=== PATIENT | male | born 1940 | race Caucasian/White ===

== ENCOUNTER → 2016-10-16 | Outpatient (CLI) | payer OTHER | LOC: BHLMT 10:30 | PROVIDERS: ATTEND Internal Medicine Cardiovascular Disease | DX: I48.91 Unspecified atrial fibrillation (principal); R55 Syncope and collapse | CPT/HCPCS: 93225-PO; 93226-PO ==

== ENCOUNTER → 2016-12-20 | Outpatient (CLI) | payer OTHER | LOC: BHLMT 11:00 | PROVIDERS: ATTEND Internal Medicine Cardiovascular Disease | DX: I48.91 Unspecified atrial fibrillation (principal) ==

== ENCOUNTER → 2017-09-24 | Outpatient (CLI) | payer OTHER | LOC: BHLMT 13:00 | PROVIDERS: ATTEND Internal Medicine Cardiovascular Disease | DX: I71.2 Thoracic aortic aneurysm, without rupture (principal); I48.2 Chronic atrial fibrillation; I49.5 Sick sinus syndrome; I50.32 Chronic diastolic (congestive) heart failure | CPT/HCPCS: 93005-PO ==

== ENCOUNTER → 2018-06-09 | Outpatient (CLI) | payer OTHER | LOC: BHLMT 14:45 | PROVIDERS: ATTEND Nurse Practitioner Family | DX: I48.2 Chronic atrial fibrillation (principal); R06.02 Shortness of breath; I49.5 Sick sinus syndrome; I50.32 Chronic diastolic (congestive) heart failure | CPT/HCPCS: 93005-PO ==

== ENCOUNTER → 2018-06-24 | Outpatient (CLI) | payer OTHER | LOC: BHLMT 11:30 | PROVIDERS: ATTEND Internal Medicine Interventional Cardiology | DX: I48.91 Unspecified atrial fibrillation (principal); R06.02 Shortness of breath | CPT/HCPCS: 93306-PO ==

== ENCOUNTER → 2018-09-01 | Outpatient (CLI) | payer OTHER | DX: I48.91 Unspecified atrial fibrillation (principal); R06.02 Shortness of breath ==

== ENCOUNTER → 2018-09-23 | Outpatient (CLI) | payer OTHER | LOC: BHFA 13:30 | PROVIDERS: ATTEND Internal Medicine Cardiovascular Disease | DX: R06.02 Shortness of breath (principal); I49.5 Sick sinus syndrome | CPT/HCPCS: 78452; 93017; A9500; J2785 ==

== ENCOUNTER 2018-09-24 09:10 | Inpatient (IN) | payer OTHER ==
[2018-09-24] MEDS ORDERED: diphenhydrAMINE 25 MG CAP PO ONE (09:14)
[2018-09-24] MEDS ORDERED: NS 1,000 ML IV ONE (09:14)
[2018-09-24] MEDS ORDERED: BACITRACIN IRRIGATION/NS 50,000 UNITS/1,000 ML BTL IRR ONE (09:14)
[2018-09-24] MEDS ORDERED: DIAZEPAM 5 MG TAB PO ONE (09:14)
[2018-09-24] MEDS ORDERED: ceFAZolin 2 GM/DEXTROSE 100 ML IV ONE (09:14)
[2018-09-24] MEDS ORDERED: LIDOCAINE 1% 300 MG/30 ML SDV ONE (10:19)
[2018-09-24] MEDS ORDERED: MIDAZOLAM 2 MG/2 ML VIAL ONE ×2 (10:19)
[2018-09-24] MEDS ORDERED: IOPAMIDOL (ISOVUE-300) 50 ML VIAL ONE (10:19)
[2018-09-24] MEDS ORDERED: fentaNYL 100 MCG/2 ML INJ ONE ×3 (10:19→12:18)
[2018-09-24] MEDS ORDERED: BUPIVACAINE 0.5% 30 ML SDV ONE (10:20)
[2018-09-24] MEDS ORDERED: LIDO/EPI 1% **for epidural** 30 ML SDV ONE (10:20)
[2018-09-24 10:27] LABS: PLATELET COUNT 509 10^3/uL (150-400)
[2018-09-24 10:39] LABS: INR 1.12 (0.83-1.16)
--- NOTE | 2018-09-24 11:22 | PDPROPOC ---
Sedation Plan of Care Sedation Plan of Care: vital signs stable, mental status noted, patient educated of risks, benefits, alternatives, patient can tolerate sedation ASA Classification: ASA 2 Planned drugs: fentanyl, midazolam Mallampati Score: Class 1 Mallampati Reference Image: Patient passed 3-3-2 rule?: Yes
--- NOTE | 2018-09-24 11:22 | PDHPUP ---
History & Physical Update H&P update statement: This history and physical update is based on an assessment of the patient which was completed after admission or registration (within 24 hours), but prior to the surgery/procedure. H&P update: H&P reviewed & patient examined, no change in patient's condition since H&P completed
--- NOTE | 2018-09-24 13:01 | CPIP ---
[f rep st] INVASIVE CARDIAC PROCEDURE DATE OF PROCEDURE: 09/24/2018 PROCEDURE: Right heart catheterization. INDICATIONS: Mr. Ahumada is 77 years old. He has symptoms of [place] [employer] Functional C lass 3 dyspnea on exertion. This procedure was performed as a diagnostic procedure as an add-on prio r to placement of a permanent pacemaker. TECHNIQUE: Please see the previously dictated pacemaker summary. Following placement of a 5-Algerian pinnacle sheath, a balloon tipped catheter was advanced to the pulmonary artery occlusive pressure po sition. Pressure was measured with the pulmonary artery occluded, the pulmonary artery pressure, the right ventricular pressure, and the right atrial pressure. The catheter was then removed from the b miranda. Following the procedure, the patient underwent implantation of a permanent pacemaker. FINDINGS: The pulmonary capillary wedge pressure was 21 mmHg with A waves of 23 and V waves of 24 mm Hg; pulmonary artery pressure of 50/18/31 mmHg with a pulmonary artery saturation of 82.5% on supplem ental oxygen; right ventricular pressure 47/5/14 mmHg. Right atrial pressure 14 mmHg. IMPRESSION(S): 1. Successful right heart catheterization. 2. Findings consistent with diastolic dysfunction and mild congestive heart failure. /[id number]/MODL
--- NOTE | 2018-09-24 13:06 | CPIP ---
[f rep st] INVASIVE CARDIAC PROCEDURE DATE OF PROCEDURE: 09/24/2018 INDICATIONS: The patient is 77 years old. He has a history of sick sinus syndrome with symptomatic bradycardia episodes of dizziness and pauses noted on telemetry up to 3.2 seconds. He has chronic at rial fibrillation. PROCEDURE: Implantation of a single-chamber pacemaker. TECHNIQUE: Following informed consent, the patient brought to the cardiac catheterization laboratory in a fasting state. Left chest was prepped and draped in the usual sterile fashion. A venogram was performed identifying a widely patent axillary subclavian system. 2% lidocaine was infiltrated in t he skin below the left clavicle. Using a #10 blade, a 3 cm incision was made. Using blunt and sharp dissection, the incision was carried down to the prepectoral fascia. A pacemaker pocket was then fa shioned. An antibiotic soaked sponge was placed in the pocket. Using a single stick in the modified Seldinger technique, access was gained to the axillary vein at the level of the 1st rib. Initially, a 5-Chilean pinnacle sheath was placed. A right heart catheterization was performed. There is a ful l and separately detailed report. After this, this sheath was changed out for 6-Chilean SafeSheath. Under fluoroscopic guidance, the right ventricular lead was advanced to the right ventricular apex. The lead was screwed into place and the sheath torn away. The lead was tested with excellent capture and sensing. The lead was then secured to the pacemaker pocket floor using 0 Ethibond. The pocket was then inspected. All bleeders were cauterized. The pocket was irrigated with antibiotic-containi ng solution. The device was brought to the field and affixed to the header according to patient relations coordinator guidelines. The device was then placed in the pocket. The pocket was then closed with 3 layers, in itially using 2 layers of interrupted suture using 2-0 and 3-0 Vicryl, and finally running Stratafix for the skin. Steri-Strips and a dry dressing were applied. DEVICE INFORMATION: The pacemaker is a [employer] Assurity MRI compatible device, model #PM127 2, serial #[id number]. The right ventricular lead is a [employer] 2088TC 58 cm lead, serial #[id number]. In the ventricle, capture was 0.6 V at 0.5 msec with a lead impedance of 806 ohms and sensed R waves of 14.5 mV. COMPLICATIONS: None. DISPOSITION: Patient will be admitted to the hospital and monitored overnight. I anticipate he will be discharged home in the morning. /[id number]/MODL
[2018-09-24] MEDS: GABAPENTIN 100 MG CAP PO SCH (21:42)
[2018-09-24] MEDS: prednisoLONE ACET 1% 5 ML OPHT.BTL LEFTEYE SCH (21:42)
[2018-09-25 04:59] LABS: PLATELET COUNT 425 10^3/uL (150-400)
[2018-09-25] MEDS: LEVOTHYROXINE 50 MCG TAB PO SCH (05:27)
[2018-09-25] MEDS ORDERED: FUROSEMIDE 40 MG TAB PO SCH (09:00)
--- NOTE | 2018-09-25 09:10 | ASMTCMCOM ---
CM Note CM Note Notes: Patient chart reviewed for discharge planning purposes. Patient admitted for elective heart cath and is s/p PPM. No cureent needs identiifed. CM available shoulld needs arise. Plan: Dc to home. Date Signed: 09/25/2018 09:09 AM Electronically Signed By:Mallika Maguire RN
--- NOTE | 2018-09-25 12:46 | ASMTCMCOM ---
CM Note CM Note Notes: Per patient's son Sean patient self care will be compromised by recent PPM placement. The want him to go to [facility] in [place]. [facility] CM to follow for needs. Plan: To SNF Date Signed: 09/25/2018 12:45 PM Electronically Signed By:Mallika Maguire RN
--- NOTE | 2018-09-25 17:47 | PDHOSCONS ---
History and Physical - Chief Complaint Heart Problems - History of Present Illness Zbigniew Ahumada is a 77 yo M with a PMHx of SSS, symptomatic bradycardia, chronic A Fib, diastolic CHF, CVA, hypothyroidism who presents to [facility] for PPM placement. Patient reports significant shortness of breath with any ambulation. He denies any chest pain. He reports a history of falling which stems from a stroke that occurred. He reports multiple falls after this. Most recent fall is reported to be 1 month ago, where he reports he tripped over his oxygen tubing in the middle of the night on the way to the bathroom. He denies any LH, dizziness, chest pain at that time. History Information - Allergies/Home Medication List Allergies/Adverse Reactions: No Known Allergies Allergy (Unverified 09/22/18 14:55) Home Medications: Apixaban [Eliquis] 5 mg PO BID 09/22/18 [Last Taken 09/19/18 21:00] Escitalopram Oxalate [Lexapro] 20 mg PO HS 09/22/18 [Last Taken 09/22/18 21:00] Gabapentin [Neurontin 100 MG (*)] 100 mg PO HS 09/22/18 [Last Taken 09/23/18 21: 00] Herbals/Supplements -Info Only 1 ea PO DAILY 09/22/18 [Last Taken Unknown] Levothyroxine [Synthroid 50 mcg (*)] 50 mcg PO DAILY06 09/22/18 [Last Taken 06:00] Multivitamins [Multivitamin (*)] 1 each PO DAILY 09/22/18 [Last Taken Unknown] Prednisolone Acetate/Pf [Prednisolone Acet 1% Eye Drop] 1 drop LEFTEYE [Last Taken 09/22/18 21:00] I have personally reviewed and updated: family history, medical history, social history, surgical history - Past Medical History atrial fibrillation - Surgical History Reports: pacemaker/AICD - Family History Positive for: non-pertinent - Social History Smoking Status: Never smoked Review of Systems Review of Systems: ROS: 10pt was reviewed & negative except for what was stated in HPI & below Physical Exam Physical Exam: Temp Pulse Resp BP Pulse Ox 36.4 C 88 24 H 94/65 L 99 09/25/18 15:57 09/25/18 15:57 09/25/18 15:57 09/25/18 15:57 09/25/18 15:57 O2 (L/minute) 4 Constitutional: no apparent distress Eyes: PERRL Ears, Nose, Mouth, Throat: moist mucous membranes Cardiovascular: regular rate and rhythym, No edema Respiratory: no respiratory distress Gastrointestinal: normoactive bowel sounds Skin: warm Musculoskeletal: full muscle strength Neurologic: AAOx3 Psychiatric: interacting appropriately Lab Data & Imaging Review 09/25/18 03:34 09/25/18 03:34 WBC 12.18 10^3/uL (3.80-9.50) H 09/25/18 03:34 RBC 4.62 10^6/uL (4.40-6.38) 09/25/18 03:34 Hgb 14.0 g/dL (13.7-17.5) 09/25/18 03:34 Hct 44.4 % (40.0-51.0) 09/25/18 03:34 MCV 96.1 fL (81.5-99.8) 09/25/18 03:34 MCH 30.3 pg (27.9-34.1) 09/25/18 03:34 MCHC 31.5 g/dL (32.4-36.7) L 09/25/18 03:34 RDW 13.3 % (11.5-15.2) 09/25/18 03:34 Plt Count 425 10^3/uL (150-400) H 09/25/18 03:34 MPV 9.2 fL (8.7-11.7) 09/25/18 03:34 Neut % (Auto) 70.4 % (39.3-74.2) 09/25/18 03:34 Lymph % (Auto) 15.0 % (15.0-45.0) 09/25/18 03:34 [place] % (Auto) 12.3 % (4.5-13.0) 09/25/18 03:34 Eos % (Auto) 1.3 % (0.6-7.6) 09/25/18 03:34 Baso % (Auto) 0.4 % (0.3-1.7) 09/25/18 03:34 Nucleat RBC Rel Count 0.0 % (0.0-0.2) 09/25/18 03:34 Absolute Neuts (auto) 8.57 10^3/uL (1.70-6.50) H 09/25/18 03:34 Absolute Lymphs (auto) 1.83 10^3/uL (1.00-3.00) 09/25/18 03:34 Absolute Monos (auto) 1.50 10^3/uL (0.30-0.80) H 09/25/18 03:34 Absolute Eos (auto) 0.16 10^3/uL (0.03-0.40) 09/25/18 03:34 Absolute Basos (auto) 0.05 10^3/uL (0.02-0.10) 09/25/18 03:34 Absolute Nucleated RBC 0.00 10^3/uL (0-0.01) 09/25/18 03:34 Immature Gran % 0.6 % (0.0-1.1) 09/25/18 03:34 Immature Gran # 0.07 10^3/uL (0.00-0.10) 09/25/18 03:34 PT 14.0 SEC (12.0-15.0) 09/24/18 10:00 INR 1.12 (0.83-1.16) 09/24/18 10:00 Sodium 140 mEq/L (135-145) 09/25/18 03:34 Potassium 4.1 mEq/L (3.5-5.2) 09/25/18 03:34 Chloride 101 mEq/L (97-110) 09/25/18 03:34 Carbon Dioxide 32 mEq/l (22-31) H 09/25/18 03:34 Anion Gap 7 mEq/L (6-14) 09/25/18 03:34 BUN 11 mg/dL (7-23) 09/25/18 03:34 Creatinine 0.8 mg/dL (0.7-1.3) 09/25/18 03:34 Estimated GFR > 60 09/25/18 03:34 Glucose 92 mg/dL (70-100) 09/25/18 03:34 Calcium 8.8 mg/dL (8.5-10.4) 09/25/18 03:34 Specimen Hemolysis 129 09/24/18 10:00 Assessment & Plan Assessment: Sick sinus syndrome (Acute) - S/p PPM placement today with cardiology Falls - Reports falls starting in 2006 after CVA, most recent appears mechanical - CT Head currently pending - PT/OT consulted, may require OP services to help prevent falls in the future Hypothyroidism - Continue home Synthroid - Will check TSH Thank you for the consult. We will continue to follow along during patient's hospitalization.
--- NOTE | 2018-09-25 19:44 | PDCARPN ---
Cardiology Progress Note Chief Complaint: Sick Sinus Syndrome-- Pacemaker placement Assessment/Plan: Assessment: SSS----PPM placed 09/24/18. Single Chamber [employer] PPM. Left pectoris PPM intact with no induration, redness, or drainage. CXR confirm stable lead placement. COGNITIVE Decline ---To go home today, however son concerned about his recent cognition decline. Head CT ordered to further evaluate. Hospitalist to consult. D-CHF-- On Lasix 40 mg QD. He is to increase Lasix to [address] Tee Adam. No edema. He did have a RHC prior to PPM placement, showing D- Dysfunction, Mild CHF. Atrial Fibrillation.--- Chronic A Fib. On Eliquis for anticoagulation. Plan: Discharge tomorrow to SNF in [place]. 09/25/18 19:36 Reviewed/Discussed With: family, hospitalist, multidisciplinary team Time Spent with Patient: greater than 25 minutes Time Spent with Patient: Greater than 25 minutes spent on this patients care, greater than 50% of time spent counseling, educating, and coordinating care regarding the above mentioned plan. Objective: Vital Signs (8 Hrs) Temp Pulse Resp BP Pulse Ox 09/25/18 19:09 36.9 C 88 15 124/64 H 97 09/25/18 15:57 36.4 C 88 24 H 94/65 L 99 09/25/18 13:30 94 Intake/Output (24 Hrs) 09/24/18 09/25/18 09/26/18 05:59 05:59 05:59 Intake Total 350 450 Output Total 150 900 Balance 200 -450 Intake: Oral (ml) 350 450 Output: Urine (ml) 150 900 Toilet 200 Urinal 150 700 Other: Weight 124.738 kg Number of Voids Toilet 1 Urinal 3 Result Diagrams: 09/25/18 03:34 09/25/18 03:34 - Physical Exam Constitutional: no apparent distress Cardiovascular: no murmurs, no rubs, no gallops, irregularly irregular Respiratory: clear to auscultate bilat, no crackles, no wheezes Skin: warm, no edema Neurologic: other (Alert) Psychiatric: cooperative, interactive ICD10 Worksheet Patient Problems: Problems Problem Status Onset Sick sinus syndrome Acute
[2018-09-25] MEDS: ESCITALOPRAM OXALATE 10 MG TAB PO SCH (20:15)
[2018-09-25] MEDS: GABAPENTIN 100 MG CAP PO SCH (20:15)
[2018-09-25] MEDS: APIXABAN 5 MG TAB PO SCH (20:15)
[2018-09-25] MEDS: prednisoLONE ACET 1% 5 ML OPHT.BTL LEFTEYE SCH (20:18)
[2018-09-26] MEDS: LEVOTHYROXINE 50 MCG TAB PO SCH (06:02)
[2018-09-26] MEDS: FUROSEMIDE 20 MG TAB PO SCH (09:55)
[2018-09-26] MEDS: APIXABAN 5 MG TAB PO SCH ×2 (09:55→22:12)
--- NOTE | 2018-09-26 12:30 | PDMN ---
Medical Necessity Medical necessity: Change to IP, as of 09/26/18, per SENIOR CONTROLS ENGINEER & [facility] General Discharge Criteria; los >2 mn s/p pacemaker placement; pt unable to safely return home independently w/PPM precautions due to recent cognitive decline w/ multiple falls; requiring further workup/monitoring, Hospitalist/CM consults & therapies; comorbid advanced age, AFIB on AC, CHF, CVA
[2018-09-26] MEDS ORDERED: SODIUM CL NASAL 45 ML BTL EACHNARE PRN (12:55)
[2018-09-26] MEDS ORDERED: PHENYLEPHRINE 0.25% NASAL 15 ML SPRAY EACHNARE PRN (12:55)
--- NOTE | 2018-09-26 13:41 | HOSPPROG ---
Hospitalist Progress Note Assessment/Plan: Sick sinus syndrome (Acute) - S/p PPM placement on 09/25 with cardiology, post procedure CXR with stable lead placement Falls - Reports falls starting in 2005 after CVA, most recent appears mechanical - CT Head performed on 09/25 with no acute intracranial abnormalities - Consulted ENVIRONMENTAL STUDIES PROFESSOR this AM for cognitive eval, likely dementia component contributing - PT/OT consulted, may require OP services to help prevent falls in the future Hypothyroidism - Continue home Synthroid - TSH WNL Diastolic CHF - Was on 40 mg Lasix QD, increased to 60 mg qd per cardiology - RHC prior to PPM placement showed diastolic dysfunction - Continue to monitor BMP, I/O Chronic A Fib - On Eliquis for AC - PPM placement as above FEN: Cardiac DVT PPx: Home Eliquis Code: FULL Dispo: Pending clinical course, PT/OT recommending SNF, CM consulted Subjective: Patient reports no complaints this AM Objective: Vital Signs Temp Pulse Resp BP Pulse Ox 36.7 C 97 18 98/63 L 93 09/26/18 12:00 09/26/18 12:00 09/26/18 12:00 09/26/18 12:00 09/26/18 12:00 Laboratory Results 09/25/18 03:34 09/25/18 03:34 09/25/18 09/26/18 09/27/18 05:59 05:59 05:59 Intake Total 350 800 240 Output Total 150 1325 Balance 200 -525 240 PT 14.0 SEC (12.0-15.0) 09/24/18 10:00 INR 1.12 (0.83-1.16) 09/24/18 10:00 - Physical Exam Constitutional: chronically ill appearing Eyes: PERRL Ears, Nose, Mouth, Throat: moist mucous membranes Cardiovascular: regular rate and rhythym Respiratory: no respiratory distress Gastrointestinal: soft, non-tender abdomen Skin: normal color Musculoskeletal: full muscle strength Neurologic: AAOx3 Psychiatric: interacting appropriately, poor memory ICD10 Worksheet Patient Problems: Problems Problem Status Onset Sick sinus syndrome Acute
--- NOTE | 2018-09-26 18:44 | PDCARPN ---
Cardiology Progress Note Assessment/Plan: Assessment: SSS----PPM placed 09/24/18. Single Chamber [facility] [employer] PPM. Left pectoris PPM intact with no induration, redness, or drainage. CXR confirm stable lead placement. COGNITIVE Decline ---To go home today, however son concerned about his recent cognition decline. Head CT ordered to further evaluate. Hospitalist to consult. D-CHF-- On Lasix 40 mg QD. He is to increase Lasix to [address] Tee Adam. No edema. He did have a RHC prior to PPM placement, showing D- Dysfunction, Mild CHF. Atrial Fibrillation.--- Chronic A Fib. On Eliquis for anticoagulation. Plan: Discharge tomorrow to SNF in [place]. 09/25/18 19:36 09/26/18 18:38 PPM functioning normal. Left pectoris site with mild ecchymosis upper edge. No significant swelling. Mildly tender. Dressing in place with no drainage. Chronic A Fib rate controlled. Cognitive decline noted by son over the past months. He is to go to [facility] on Saturday. Unable to accept him today or over week- end. Hospitalist (Brad Cuevas DO) accepted transfer of care. Will sign-off for now. Subjective: The pacemaker site is tender. Otherwise doing well. Reviewed/Discussed With: hospitalist, multidisciplinary team Time Spent with Patient: greater than 25 minutes Time Spent with Patient: Greater than 25 minutes spent on this patients care, greater than 50% of time spent counseling, educating, and coordinating care regarding the above mentioned plan. Objective: Vital Signs (8 Hrs) Temp Pulse Resp BP Pulse Ox 09/26/18 16:00 36.6 C 76 20 124/74 H 99 09/26/18 12:00 36.7 C 97 18 98/63 L 93 Intake/Output (24 Hrs) 09/25/18 09/26/18 09/27/18 05:59 05:59 05:59 Intake Total 532 546 9668 Output Total 150 1325 1700 Balance 200 -525 -480 Intake: Oral (ml) 752 696 5907 Output: Urine (ml) 150 1325 1700 Toilet 200 1200 Urinal 150 1125 500 Other: Weight 124.738 kg Number of Voids Toilet 1 3 Urinal 1 1 Number of Stools Urinal 1 Result Diagrams: 09/25/18 03:34 09/25/18 03:34 - Physical Exam Constitutional: no apparent distress Cardiovascular: no rubs, no gallops, irregularly irregular Respiratory: clear to auscultate bilat, no crackles, no wheezes Skin: warm, no edema Neurologic: AAOx3 Psychiatric: cooperative, interactive ICD10 Worksheet Patient Problems: Problems Problem Status Onset Sick sinus syndrome Acute
[2018-09-26] MEDS: ESCITALOPRAM OXALATE 10 MG TAB PO SCH (22:12)
[2018-09-26] MEDS: GABAPENTIN 100 MG CAP PO SCH (22:12)
[2018-09-26] MEDS: prednisoLONE ACET 1% 5 ML OPHT.BTL LEFTEYE SCH (22:24)
[2018-09-27] MEDS: LEVOTHYROXINE 50 MCG TAB PO SCH (05:45)
[2018-09-27] MEDS: APIXABAN 5 MG TAB PO SCH ×2 (10:08→20:07)
[2018-09-27] MEDS: FUROSEMIDE 20 MG TAB PO SCH (10:08)
--- NOTE | 2018-09-27 11:20 | PDCARPN ---
Cardiology Progress Note Chief Complaint: post pacemaker implant Assessment/Plan: Assessment: 1. Permanent AF with pauses over 3.5 seconds and symptoms of lightheadedness, s/ p single chamber PM implant 09/24. Site has gauze and opsite dressing intact. No significant swelling noted. Reiterated arm restrictions, he reports forgetting a few times. 2. Diastolic CHF ,Dr. Adam did a RHC which demonstrated elevated PAWP of 23 mmhg and pulm pressures of 50/18/31mmhg. Lasix has been increased to 60mg with equal I &Os. Will check BMP tomorrow. 3. Dementia with memory problems. He will be going to a SNF in [place] on Saturday. Plan: 09/27/18 11:13 Reviewed/Discussed With: hospitalist, other (Dr. Haines) Objective: Vital Signs (8 Hrs) Temp Pulse Resp BP Pulse Ox 09/27/18 08:00 36.4 C 81 20 100/66 96 09/27/18 03:15 36.7 C 61 17 120/73 96 Intake/Output (24 Hrs) 09/26/18 09/27/18 09/28/18 05:59 05:59 05:59 Intake Total 800 2070 Output Total 1325 2475 400 Balance -525 -405 -400 Intake: Oral (ml) 800 2070 Output: Urine (ml) 1325 2475 400 Toilet 200 1200 400 Urinal 1125 1275 Other: Number of Voids Toilet 1 Urinal 1 1 Number of Stools Urinal 1 Result Diagrams: 09/25/18 03:34 09/25/18 03:34 Telemetry: AF with CVR and some CAR DETAILER - Physical Exam Constitutional: WDWN Cardiovascular: other (irregular rhythm, no murmur or rub) Respiratory: reduced air movement Skin: other (Gauze and opsite dressing dry and intact over PM site. No significant swelling) Neurologic: AAOx3 Psychiatric: cooperative, interactive ICD10 Worksheet Patient Problems: Problems Problem Status Onset Sick sinus syndrome Acute
--- NOTE | 2018-09-27 12:17 | HOSPPROG ---
Hospitalist Progress Note Assessment/Plan: Sick sinus syndrome (Acute) - S/p PPM placement on 09/25 with cardiology, post procedure CXR with stable lead placement Falls - Reports falls starting in 2005 after CVA, most recent appears mechanical - CT Head performed on 09/25 with no acute intracranial abnormalities - Consulted MELT DOWN FURNACE OPERATOR for cognitive eval, likely dementia component contributing - PT/OT consulted,dispo to SNF in [place] on Saturday Hypothyroidism - Continue home Synthroid - TSH WNL Diastolic CHF - Was on 40 mg Lasix QD, increased to 60 mg qd per cardiology - RHC prior to PPM placement showed diastolic dysfunction - Continue to monitor BMP, I/O Chronic A Fib - On Eliquis for AC - PPM placement as above FEN: Cardiac DVT PPx: Home Eliquis Code: FULL Dispo: Pending clinical course, PT/OT recommending SNF Subjective: Pt with no complaints this AM Objective: Vital Signs Temp Pulse Resp BP Pulse Ox 36.8 C 92 20 120/71 99 09/27/18 11:23 09/27/18 11:23 09/27/18 11:23 09/27/18 11:23 09/27/18 11:23 Laboratory Results 09/25/18 03:34 09/25/18 03:34 09/26/18 09/27/18 09/28/18 05:59 05:59 05:59 Intake Total 800 2070 Output Total 1323 7947 500 Balance -525 -405 -500 PT 14.0 SEC (12.0-15.0) 09/24/18 10:00 INR 1.12 (0.83-1.16) 09/24/18 10:00 ICD10 Worksheet Patient Problems: Problems Problem Status Onset Sick sinus syndrome Acute
[2018-09-27] MEDS: ESCITALOPRAM OXALATE 10 MG TAB PO SCH (20:08)
[2018-09-27] MEDS: GABAPENTIN 100 MG CAP PO SCH (20:08)
[2018-09-27] MEDS: prednisoLONE ACET 1% 5 ML OPHT.BTL LEFTEYE SCH (22:10)
[2018-09-28] MEDS: LEVOTHYROXINE 50 MCG TAB PO SCH (05:53)
--- NOTE | 2018-09-28 11:20 | PDCARPN ---
Cardiology Progress Note Assessment/Plan: Assessment: 1. Permanent AF with pauses over 3.5 seconds and symptoms of lightheadedness, s/ p single chamber PM implant 09/24. Gauze and opsite dressing loose, new dressing applied in sterile manner. Steri strips dry and intact. No bleeding, drainage or swelling. Instructed to keep dry. Reiterated arm restrictions, he reports forgetting a few times. 2. Diastolic CHF ,Dr. Adam did a RHC which demonstrated elevated PAWP of 23 mmhg and pulm pressures of 50/18/31mmhg. Lasix has been increased from 40mg daily to 60mg . Mild crackles in lower half of lungs. Mild CHARAN. Walking without VALLECILLO. bicarb high and chloride low. Potassium is down to 3.5, will add supplement per Dr. Cuevas. Continue current dose of lasix. 3. Dementia with memory problems. He will be going to a SNF in [place] on Saturday. Plan: 09/27/18 11:13 09/28/18 11:16 09/28/18 11:21 Reviewed/Discussed With: hospitalist, multidisciplinary team, other (Dr. Haines) Objective: Vital Signs (8 Hrs) Temp Pulse Resp BP Pulse Ox 09/28/18 08:00 36.5 C 72 18 134/70 H 96 09/28/18 03:39 36.5 C 76 17 110/64 94 Intake/Output (24 Hrs) 09/27/18 09/28/18 09/29/18 05:59 05:59 05:59 Intake Total 2070 1850 Output Total 2475 1650 100 Balance -405 200 -100 Intake: Oral (ml) 2069 1850 Output: Urine (ml) 2475 1650 100 Toilet 1200 500 100 Urinal 1275 1150 Other: Intake Quantity Yes Sufficient Number of Voids Toilet 1 Urinal 1 2 Number of Stools Toilet 1 Urinal 1 Result Diagrams: 09/25/18 03:34 09/28/18 03:30 - Physical Exam Constitutional: no apparent distress, obese Cardiovascular: other (irregularly irregular rhythm with no M, R ,G) Respiratory: other (Mild crackles in lower half of lungs bilaterally) Gastrointestinal: normoactive bowel sounds, no tenderness Skin: other (Pacemaker site without swelling, bleeding or tenderness. Steri strips dry and intact. New gauze dressing applied. ) Psychiatric: cooperative ICD10 Worksheet Patient Problems: Problems Problem Status Onset Sick sinus syndrome Acute
[2018-09-28] MEDS ORDERED: PROTOCOL POTASSIUM 1 DOSE MISC PRN (11:34)
[2018-09-28] MEDS ORDERED: POTASSIUM CL 10 MEQ TAB PO ONE ×2 (11:52→19:44)
[2018-09-28] MEDS: APIXABAN 5 MG TAB PO SCH ×2 (11:55→20:22)
[2018-09-28] MEDS: FUROSEMIDE 20 MG TAB PO SCH (11:57)
--- NOTE | 2018-09-28 13:15 | HOSPPROG ---
Hospitalist Progress Note Assessment/Plan: Sick sinus syndrome (Acute) - S/p PPM placement on 09/25 with cardiology, post procedure CXR with stable lead placement Falls - Reports falls starting in 2005 after CVA, most recent appears mechanical - CT Head performed on 09/25 with no acute intracranial abnormalities - Consulted BACKUP ADMINISTRATOR for cognitive eval, likely dementia component contributing - PT/OT consulted, dispo to SNF in [place] on Saturday Hypothyroidism - Continue home Synthroid - TSH WNL Diastolic CHF - Was on 40 mg Lasix QD, increased to 60 mg qd per cardiology - RHC prior to PPM placement showed diastolic dysfunction - Continue to monitor BMP, I/O Chronic A Fib - On Eliquis for AC - PPM placement as above FEN: Cardiac DVT PPx: Home Eliquis Code: FULL Dispo: Pending clinical course, PT/OT recommending SNF Subjective: Pt reports no complaints this AM Objective: Vital Signs Temp Pulse Resp BP Pulse Ox 36.3 C 86 20 112/73 92 09/28/18 11:57 09/28/18 11:57 09/28/18 11:57 09/28/18 11:57 09/28/18 11:57 Laboratory Results 09/25/18 03:34 09/28/18 03:30 09/27/18 09/28/18 09/29/18 05:59 05:59 05:59 Intake Total 2070 1850 Output Total 2475 1650 250 Balance -405 200 -250 PT 14.0 SEC (12.0-15.0) 09/24/18 10:00 INR 1.12 (0.83-1.16) 09/24/18 10:00 - Physical Exam Constitutional: chronically ill appearing Eyes: PERRL Ears, Nose, Mouth, Throat: moist mucous membranes Cardiovascular: regular rate and rhythym Respiratory: no respiratory distress, inspiratory crackles (mild at bases) Gastrointestinal: soft, non-tender abdomen Skin: warm Musculoskeletal: full muscle strength Neurologic: AAOx3 Psychiatric: interacting appropriately, poor memory ICD10 Worksheet Patient Problems: Problems Problem Status Onset Sick sinus syndrome Acute
[2018-09-28] MEDS: ESCITALOPRAM OXALATE 10 MG TAB PO SCH (20:22)
[2018-09-28] MEDS: GABAPENTIN 100 MG CAP PO SCH (20:22)
[2018-09-28] MEDS: prednisoLONE ACET 1% 5 ML OPHT.BTL LEFTEYE SCH (21:36)
[2018-09-29] MEDS: LEVOTHYROXINE 50 MCG TAB PO SCH (06:08)
--- NOTE | 2018-09-29 08:33 | PDCARPN ---
Cardiology Progress Note Chief Complaint: DCHF/pauses/SSS Assessment/Plan: Assessment: 77M PMH permanent atrial fibrillation associated with sick sinus syndrome, acute -on-chronic diastolic heart failure, small ascending aortic aneurysm, history of CVA and sleep apnea currently using oxygen at night. Underwent RHC and PPM implantation after pauses were noted on holter monitoring and c/o SOB. Pt new to me. Chart reviewed from both and [facility]. Plan: #. SSS: s/p single chamber PPM post-procedural instructions reviewed follow ups are scheduled #. permanent AF: [id number] of 6-7 on Eliquis 5 BID Unclear if patient can remain on this given h/o falls d/c appt with Dr. Adam #. DCHF: mild peripheral edema PCWP 21, PAP 50/18/31 c/w PHTN and DCHF Lasix PO increased from 40 to 60 mg daily 09/29/18 08:28 Subjective: Feels well. Slept well. Not short of breath. No leg pain or dizziness. Objective: Vital Signs (8 Hrs) Temp Pulse Resp BP Pulse Ox 09/29/18 07:06 98.4 F 83 20 122/69 H 93 09/29/18 03:58 97.6 F 72 16 116/64 96 Intake/Output (24 Hrs) 09/28/18 09/29/18 09/30/18 05:59 05:59 05:59 Intake Total 1850 850 Output Total 1650 1400 200 Balance 200 -550 -200 Intake: Oral (ml) 1850 850 Output: Urine (ml) 1650 1400 200 Toilet 500 450 Urinal 1150 950 200 Other: Intake Quantity Yes Sufficient Number of Voids Urinal 2 1 Number of Stools Toilet 1 Result Diagrams: 09/25/18 03:34 09/29/18 03:32 Telemetry: reviewed/ AF with PVCs - Physical Exam Constitutional: no apparent distress Eyes: PERRL, anicteric sclera Cardiovascular: irregularly irregular, No systolic murmur Respiratory: clear to auscultate bilat, reduced air movement Gastrointestinal: normoactive bowel sounds, no tenderness Skin: no rashes, no abrasions, other (trace edema) Psychiatric: cooperative, interactive ICD10 Worksheet Patient Problems: Problems Problem Status Onset Sick sinus syndrome Acute
[2018-09-29] MEDS ORDERED: POTASSIUM CL 10 MEQ TAB PO ONE (09:55)
[2018-09-29] MEDS: FUROSEMIDE 20 MG TAB PO SCH (10:05)
[2018-09-29] MEDS: APIXABAN 5 MG TAB PO SCH (10:05)
[2018-09-29] MEDS ORDERED: BISACODYL 10 MG SUPP PR PRN (10:36)
[2018-09-29] MEDS ORDERED: POLYETHYLENE GLYCOL 3350 17 GM PKT PO PRN (10:36)
[2018-09-29] MEDS ORDERED: LACTULOSE 20 GM/30 ML UDCUP PO PRN (10:36)
[2018-09-29] MEDS ORDERED: MAGNESIUM HYDROXIDE 30 ML UDCUP PO PRN (10:36)
[2018-09-29 11:05] VITALS: BP 107/67
--- NOTE | 2018-09-29 11:56 | ASMTLACE ---
E[facility] Length of stay for Answers: 2 days current admission Acuity / Level of Answers: Yes Care: Did the patient have an inpatient admission? Comorbidities - select Answers: Chronic pulmonary disease all that apply Congestive heart failure Other Notes: AFib # of Emergency department Answers: 0 visits in the last 6 months Score: 10 Date Signed: 09/29/2018 11:55 AM Electronically Signed By:Mallika Maguire RN
--- NOTE | 2018-09-29 12:00 | PDIAF ---
- Diagnosis Diagnosis: Bradycardia Code Status: Full Code - Medication Management Discharge Medications: electronically signed and located in the Home Medication List. - Orders Services needed: Home Care, Registered Nurse, Physical Therapy, Occupational Therapy Home Care Face to Face: I certify that this patient was under my care and that I had the required [id number] encounter meeting the encounter requirements on the discharge day. My findings support the fact that the patient is homebound as defined in Home Care Face to Face Continued: CMS Chapter 7 Medicare Benefits Manual 30.1.1 , The condition of the patient is such that there exists a normal inability to leave home and consequently, leaving home would require a considerable and taxing effort. Diet Recommendation: cardiac -low fat low salt Diet Texture: Regular Texture Diet Additional Instructions: Left arm Pacemaker instructions per written instructions. Avoid use of L arm above shoulder level. No lifting, pushing,pulling greater than 10 pounds for 4 weeks. Use sling first two days, and at night first 4 days to remind to keep arm below shoulder level. See Pacer Nurse for pacemaker check, then Dr Adam October 10 at 1 pm at [facility] Heart office. Call clinic if any concerns or questions. NOTE Increase Lasix to 60 mg total...Take Lasix 40 mg ..1 1/2 tablets daily - Follow Up Care Current Providers and Referrals: YVES ISAACS [Primary Care Provider] - Ino Adam MD [Medical Doctor] - 10/10/18 1:00 pm (1 pm Pacemaker check and incision check, followed by 1:[address] Adam)
--- NOTE | 2018-09-29 12:20 | ASMTDCNOTE ---
Case Management Discharge Discharge Order Complete? Answers: Yes Patient to Obtain Answers: Other Notes: [facility] Transportation Arranged Answers: Other Notes: Wheel chair van Transport will Pick (Date 09/29/2018 12:30 PM & Time) Faxed Final Orders Answers: Yes Agency/Facility Transfer Answers: Yes Report Printed & Faxed to Receiving Agency Family Notified Answers: Yes Discharge Comments Notes: Medically cleared for transport to [facility] in [place]. Orders via Coin. Message left with Son. Transport via wheel chair van. Date Signed: 09/29/2018 12:19 PM Electronically Signed By:Mallika Maguire RN
--- NOTE | 2018-09-29 15:12 | PDDCSUM ---
Discharge Summary Discharge Summary: Date of Admission: 09/26/2018 Date of Discharge: 09/29/2018 Consults: Cardiology Procedure: PPM Placement Followup: Cardiology, PCP Hospital Course Problem List: Sick sinus syndrome (Acute) - S/p PPM placement on 09/25 with cardiology, post procedure CXR with stable lead placement Falls - Reports falls starting in 2005 after CVA, most recent appears mechanical - CT Head performed on 09/25 with no acute intracranial abnormalities - Consulted [employer] for cognitive eval, likely dementia component contributing - PT/OT consulted, dispo to SNF in [place] Hypothyroidism - Continue home Synthroid - TSH WNL Diastolic CHF - Was on 40 mg Lasix QD, increased to 60 mg qd per cardiology - RHC prior to PPM placement showed diastolic dysfunction - Continue to monitor BMP, I/O Chronic A Fib - On Eliquis for AC - PPM placement as above Time spent on discharge was >35 minutes with >50% of time spent on patient education and counseling.
[2018-09-29] MEDS ORDERED: SENNOSIDES/DOCUSATE SODIUM TAB PO SCH (21:00)
--- NOTE | 2018-10-02 16:43 | CPEKG ---
Test Reason : OPEN Blood Pressure : / mmHG Vent. Rate : 095 BPM Atrial Rate : 091 BPM P-R Int : 158 ms QRS Dur : 097 ms QT Int : 374 ms P-R-T Axes : 000 002 018 degrees QTc Int : 470 ms Atrial fibrillation Confirmed by Daniele Gomez ([id number]) on 10/02/2018 4:43:08 PM Referred By: Ino Adam Confirmed By:Daniele Gomez
--- NOTE | 2018-10-02 16:45 | CPEKG ---
Test Reason : OPEN Blood Pressure : / mmHG Vent. Rate : 086 BPM Atrial Rate : 075 BPM P-R Int : 176 ms QRS Dur : 100 ms QT Int : 387 ms P-R-T Axes : 240 -06 015 degrees QTc Int : 463 ms Atrial fibrillation Ventricular premature complex Confirmed by Daniele Gomez ([id number]) on 10/02/2018 4:44:45 PM Referred By: Ino Adam Confirmed By:Daniele Gomez
--- NOTE | 2018-10-02 17:06 | CPEKG ---
Test Reason : OPEN Blood Pressure : / mmHG Vent. Rate : 065 BPM Atrial Rate : 000 BPM P-R Int : 066 ms QRS Dur : 094 ms QT Int : 413 ms P-R-T Axes : 000 006 020 degrees QTc Int : 430 ms Afib/flut and V-paced complexes Low voltage, precordial leads Confirmed by Daniele Gomez ([id number]) on 10/02/2018 5:05:41 PM Referred By: Ino Adam Confirmed By:Daniele Gomez
== END 2018-09-29 13:02 | DRG 243 ==
LOC: FCATH 09:10 → F3E 12:31 → F2W 14:35 → OBSVTOIN 09-26 12:05
PROVIDERS: ADMIT Internal Medicine Cardiovascular Disease; ATTEND Internal Medicine Cardiovascular Disease
PROC: 02HK3JZ Insertion of Pacemaker Lead into Right Ventricle, Percutaneous Approach (ICD-10-PCS; principal; 2018-09-24)
PROC: 4A023N6 Measurement of Cardiac Sampling and Pressure, Right Heart, Percutaneous Approach (ICD-10-PCS; principal; 2018-09-24)
PROC: 0JH604Z Insertion of Pacemaker, Single Chamber into Chest Subcutaneous Tissue and Fascia, Open Approach (ICD-10-PCS; principal; 2018-09-24)
DX: I49.5 Sick sinus syndrome (principal); I11.0 Hypertensive heart disease with heart failure; I50.22 Chronic systolic (congestive) heart failure; R29.6 Repeated falls; E03.9 Hypothyroidism, unspecified; I48.2 Chronic atrial fibrillation; I71.2 Thoracic aortic aneurysm, without rupture; E66.9 Obesity, unspecified
CPT/HCPCS: 92523-GN; 97116-GP; 97162-GP; 97165-GO; 97530-GP; 97535-GO; C1786; C1898; J0690; J1644; J2250; J3010; Q9967